=== PATIENT | female | born 1990 | race Caucasian/White ===

== ENCOUNTER → 2021-08-10 12:21 | Outpatient (CLI) | payer OTHER, SELFPAY ==
[2021-08-10 15:32] LABS: HCG,Quantitative 44 mIU/ml (0-5.42)
[2021-08-12 08:10] LABS: Hepatitis B Surface Antigen Negative (Negative)
[2021-08-12 09:30] LABS: Rapid Plasma Reagin Ab Titer Non Reactive (NonRea<1:1)
== END ==
PROVIDERS: Visit Provider Obstetrics & Gynecology
DX: Z34.90 Encounter for supervision of normal pregnancy, unspecified, unspecified trimester (principal)
CPT/HCPCS: 36415; 84702; 86592; 86762; 87340

== ENCOUNTER 2024-06-23 10:49 | Outpatient (CLI) | payer OTHER, SELFPAY | END 2024-06-23 23:59 | disposition home or self-care (01) | LOC: LAB.DROPOF 06-24 10:50 | PROVIDERS: PCP Obstetrics & Gynecology; Visit Provider Obstetrics & Gynecology | DX: Z34.90 Encounter for supervision of normal pregnancy, unspecified, unspecified trimester (principal) | CPT/HCPCS: 87086 ==

== ENCOUNTER 2025-03-12 16:46 | Emergency (ER) | payer SELFPAY ==
--- OUTSIDE RECORDS SUMMARY | 2025-03-12 16:59 | XMS_ITS | Clinical Summary ---
Author Organization [facility] Address [address] [place] [address] Care Team Providers Care Sales Analytics Manager Name Role Phone Pcp, No Primary Care Provider Unavailabl e Allergies No known active allergies Medications levothyroxine (Synthroid, Levoxyl) 75 MCG tabletIndications: Acquired hypothyroidism Take 1 tablet (75 mcg) by mouth 1 (one) time each day before breakfast. 90 tablet 3 08/17/20 24 025 Active acetaminophen (Tylenol) 325 MG tablet Take 2 tablets (650 mg) by mouth every 4 (four) hours if needed for pain. Under [place] law, monthly prescriptions (30 days) can be refilled at 25 days and three-month prescriptions (90 days) at 80 days. Please contact the insurance company with questions if refills are denied. 100 tablet 10/04/20 24 Active docusate sodium 100 MG capsule Take 200 mg by mouth 2 (two) times a day. 60 capsule 3 10/04/20 24 Active ferrous sulfate 324 MG tablet delayed-release Take 1 tablet (324 mg) by mouth 1 (one) time each day with breakfast. Do not crush, chew, or split. 30 tablet 3 10/04/20 24 Active Additional Information Patient not taking.Reported on 10/26/2024 ibuprofen 600 MG tabletIndications: Mild to Moderate Pain Take 1 tablet (600 mg) by mouth every 6 (six) hours. 100 tablet 10/04/20 24 Active oxyCODONE (Roxicodone) 5 MG immediate release tablet Take 1 tablet (5 mg) by mouth every 4 (four) hours if needed for moderate pain. 14 tablet 10/04/20 24 Active Additional Information Patient not taking.Reported on 10/26/2024 Vit-Fe Fumarate-FA ( Vitamins) 28-0.8 MG tabletIndications: Encounter for visit Take 1 tablet by mouth 1 (one) time each day. 30 tablet 11 10/26/19 25 026 Active Active Problems Problem Noted Date Diagnosed Date Encounter for female sterilization procedure Limited care in third trimester 024 care, antepartum 04/20/2024 Assessment & Plan (09/28/2024 8:47 AM EST): Labs: O+/RI/Syph-/HIV-/HBV-/HCV- G/C/T swabs obtained, normal Pap: ASCUS, HPV high risk negative: Per ASCCP guideline, repeat pap with cotesting in 3 yrs Taking vitamin Glucola: Missed glucola appointment, POC glucose was 101 on 09/07 and 115 fasting on 09/14 GBS: Urine culture negative Hypothyroidism: -history of hypothyroidism -taking Levothyroxine 75 mcg daily Immunuzations: Flu: 08/02/24 COVID: Received 09/14/24 Tdap: 08/02/24 MMR: Immune Ultrasounds: 08/09/24 33w1d: Cephalic, anterior placenta, normal AF, 05/13 BPP Delivery Plan: Delivery: Anticipated Anesthesia: does desire epidural PPBC: Tubal Ligation (CONSENT SIGNED: 08/17/24, SEE MEDIA) Breast/Bottle: Breast + Bottle Support Persons: Routine Care at 39w2d Discussed Healthy practices. I am having Shi MorrisonGaby Sang Conet maintain her Vitamins, levothyroxine, and famotidine. Assessment & Plan (08/02/2024 9:43 AM EDT): Labs: 03/23/24: - O+/RI/RPRNR/HBV-/HCV-/HIV- -H/H/PLT: 12.6/37.9/411 - G/C./T neg - Pap ASCUS, HPV high risk negative: Per ASCCP guideline, repeat pap with cotesting in 3 yrs. -TSH 4.96 ( elevated) on Levothyroxin 50 mcg. Glucola: Pt no showed appt on 05/18/24 missed testing window 08/02/24: Point of care blood gluose: 106 08/02/24: H/H/PLT -TSH -Hgb A1c Ultrasounds: 05/11/24: Anatomy US: 20w0 d, Breech , ant. plancenta, 3VC, nml AF, BPD 47.8 mm, OFD 64.5 mm, HC 181.8 mm, cerebellum tr 21.7 mm, NF 4.2 mm, AC 154.7 mm, FL 30.6 mm, Humerus: 30.9 mm, HC/AC 1.18 EFW 336 gm ( 0 lb 12 oz), limited anatomic survey, normal cervical length., Rec. Completion anatomy US in 4-6 wks. 06/22/24: US no showed 07/08/24: US no showed 08/09/24: Vaccinations: - Flu: Covid: - Tdap: discuss at 28 wk. Delivery planning: - Delivery planning: REESE - feeding planned: Breast and bottle -PP contraception plan: Considering Depo - wanting longer acting option than OCPs - introduced nexplanon or IUD as options for further discussion Assessment & Plan (04/20/2024 10:47 AM EDT): Labs: 03/23/24: - O+/RI/RPRNR/HBV-/HCV-/HIV- -H/H/PLT: 12.6/37.9/411 - G/C./T neg - Pap ASCUS, HPV high risk negative: Per ASCCP guideline, repeat pap with cotesting in 3 yrs. -TSH 4.96 ( elevated) on Levothyroxin 50 mcg. Glucola at 24-28 wk H/H/PLT: TSH Ultrasounds: 05/11/24: Anomaly US Vaccinations: - Flu: Covid: - Tdap: discuss at 28 wk. Delivery planning: - Delivery planning: REESE -Infant feeding planned: Breast and bottle -PP contraception plan: Considering Depo - wanting longer acting option than OCPs - introduced nexplanon or IUD as options for further discussion Hypothyroidism affecting in third trim soni 04/20/2024 Assessment & Plan (09/28/2024 8:49 AM EST): Reviewed labs with patient. Explained that the medication is what was keeping her labs normal. Asked her to resume her medication and explained that it is ok that she was off of it for a week. She voiced understanding. Resolved Problems Problem Noted Date Diagnosed Date Resolved Date 40 weeks gestation of 10/02/2024 10/04/2024 Immunizations Immunization Administration Dates Next Due Influenza, seasonal, injectable, preservative fr ee 08/02/2024 Moderna Covid-19 Vaccine 12y +, Damaso Protein, Preservative free 09/14/2024 Tdap 08/02/2024 Social History Tobacco Use Types Packs/Day Years Used Date Smoking Tobacco: Never Smokeless Tobacco: Never Tobacco Cessation:Counseling Given: Not Answered Alcohol Use Standard Drinks/Week Comments Never 0 (1 standard drink = 0.6 oz pur e alcohol) Humiliation, Afraid, Rape, and Kick questionnair e Answer Date Recorded Within the last year, have y ou been afraid of your partner or ex-partner? No 09/21/2024 Within the last year, have y ou been humiliated or emotionally abused in other ways by your partner or ex-partner? No Within the last year, have y ou been kicked, hit, slapped, or otherwise physically hurt by your partner or ex-partner? No 09/21/2024 Within the last year, have y ou been raped or forced to have any kind of sexual activity by your partner or ex-partner? No 09/21/2024 Social Connection and Isolation Panel Answer Date Recorded In a typical week, how many times do you talk on the phone with family, friends, or neighbors? More than three times a week 09/21/2024 How often do you get togethe r with friends or relatives? More than three times a week 09/21/2024 How often do you attend chur or methodist services? More than 4 times per year 09/21/2024 Do you belong to any clubs o r organizations such as druze groups, unions, fraternal or athletic groups, or school groups? No 09/21/2024 How often do you attend meet ings of the clubs or organizations you belong to? More than 4 times per year 09/21/2024 Are you , , di vorced, , never , or living with a partner? Living with partner 09/21/2024 AUDIT-C Answer Date Recorded Q1: How often do you have a drink containing alcohol? Never 09/21/2024 Q2: How many drinks containi ng alcohol do you have on a typical day when you are drinking? Patient does not drink Q3: How often do you have si x or more drinks on one occasion? Never 09/21/2024 Overall Financial Resource Strain (CARDIA) Answe r Date Recorded How hard is it for you to pa y for the very basics like food, housing, medical care, and heating? Somewhat hard 09/21/2024 PHQ-2 Answer Date Recorded Patient Health Questionnaire-2 Score 0 10/26/2024 [facility] of Occupat ional Health - Occupational Stress Questionnaire Answer Date Recorded Do you feel stress - tense, restless, nervous, or anxious, or unable to sleep at night because your mind is troubled all the time - these days? Not at all 09/21/2024 Exercise Vital Sign Answer Date Recorde d On average, how many days pe r week do you engage in moderate to strenuous exercise (like a brisk walk)? 0 days 09/21/2024 On average, how many minutes do you engage in exercise at this level? 0 min 09/21/2024 Hunger Vital Sign Answer Date Recorded Within the past 12 months, y ou worried that your food would run out before you got the money to buy more. Never true 09/21/20 24 Within the past 12 months, t he food you bought just didn't last and you didn't have money to get more. Never true 09/21/2024 PRAPARE - Transportation Answer Date Re corded In the past 12 months, has l ack of transportation kept you from medical appointments or from getting medications? No 09/05 In the past 12 months, has l ack of transportation kept you from meetings, work, or from getting things needed for daily living? No 09/21/2024 Lagrange Depression Scale Answer Date Recorded Lagrange Depression Scale Total 0 10/26/2024 The thought of harming myself has occurred to me . Never 10/26/2024 PHQ-9 Answer Date Recorded Patient Health Questionnaire-9 Score 0 10/26/2024 Housing Stability Vital Sign Answer Mickey e Recorded In the last 12 months, was t here a time when you were not able to pay the mortgage or rent on time? No 09/21/2024 In the past 12 months, how m any times have you moved where you were living? 0 09/21/2024 At any time in the past [address] [facility], were you homeless or living in a jail (including now)? No 09/21/2024 CAGE ASSESSMENT Answer Date Recorded Cage unable to access Not on file 10/02/2024 Cage max number of drinks Not on file 2023 Cage Beverages a week Not on file 10/02/2024 Have you ever felt you should CUT down on your d rinking? 0 10/02/2024 Have you been ANNOYED by people criticizing your drinking? 0 10/02/2024 Have you felt GUILTY about your drinking? 0 10/02/2024 Have you had a drink first t seema in the morning ([employer]) to steady your nerves or to get rid of a hangover? 0 10/02/2024 CAGE Questionnaire Score 0 024 Utilities Answer Date Recorded In the past 12 months has e [employer], gas, oil, or water flipClass threatened to shut off services in your home? No 09/21/2024 PHQ-2A Answer Date Recorded Depression Risk 0 03/23/2024 Comments No Sex and Gender Information Value Date Recorded Sex Assigned at Not on file Legal Sex Female 4:17 PM EDT Gender Identity Not on file Sexual Orientation Not on file Last Filed Vital Signs Vital Sign Reading Time Taken Comments Blood Pressure 128/81 10/26/2024 10:56 AM EST Pulse 62 10/26/2024 10:56 AM EST Temperature 36.6 C (97.8 F) 10/26/2024 10:56 AM EST Respiratory Rate 18 10/04/2024 8:21 AM EST Oxygen Saturation 99% 10/26/2024 10:56 AM EST Inhaled Oxygen Concentration - - Weight 99.4 kg (219 lb 2.2 oz) 10/26/2024 10:56 AM EST Height 165.1 cm (5' 5 ) 04/20/2024 9:00 AM EDT Body Mass Index 36.47 04/20/2024 9:00 AM EDT Plan of Treatment Health Maintenance Due Date Last Done Comments [facility]-Infant/Child/Adol SDOH Screenings 1990 [facility]-Varicella Vaccines (1 of 2 - 13+ 2-dose series) 2003 HPV Vaccines (1 - 3-dose series) 2005 [facility]-Hepatitis B Vaccines (1 of 3 - 19+ 3-dose series) 2009 [id number] Vaccine (2 - Moderna risk series) 10/12/2024 09/14/2024 [facility]- SDOH Screenings 03/22/2025 [facility]-Adult SDOH Screenings 03/22/2025 09/21/2024 [facility]-Depression Screening 10/26/2025 025, 10/26/2024, 10/26/2024, Additional history exists [facility]-Pap Smear 03/23/2027 03/23/2024 [facility]-Cervical Cancer Screening 03/23/2029 [facility]-HPV/Cotest 03/23/2029 03/23/2024 [facility]-DTaP,Tdap,and Td Vaccines (2 - Td or Tdap) 08/02/2034 08/02/2024 [facility]-Zoster Vaccines (1 of 2) 2040 [facility]-HIV Screening Completed 03/23/2024 [facility]-Hepatitis C Screening Completed 03/23/2024 [facility]-Influenza Vaccine Completed 08/02/2024 [facility]-Obesity Intervention Completed 025, 10/02/2024, 09/28/2024, Additional history exists [facility]-HIB Vaccines Aged Out No longer e ligible based on patient's age to complete this topic [facility]-Hepatitis A Vaccines Aged Out No longer eligible based on patient's age to complete this topic [facility]-IPV Vaccines Aged Out No longer e ligible based on patient's age to complete this topic [facility]-Pneumococcal Vaccine: Pediatrics (0 to 5 Years) and At-Risk Patients (6 to 49 Years) Aged Out No longer eligible based on patient's age to complete this topic [facility]-Rotavirus Vaccines Aged Out No lo nger eligible based on patient's age to complete this topic Procedures Procedure Name Priority Date/Time Associated Diagnosis Comments HEPATITIS C ANTIBODY W/REFLEX TO HCV QUANT PCR Routine 03/23/2024 11:32 AM EDT care, antepartum HIV 1/2 ANTIBODY/ANTIGEN SCREEN WITH REFLEX TO HIV I/II DIFFERENTIATION Routine 03/23/2024 11:32 AM EDT care, antepartum PAP TEST - CYTOLOGY Routine 03/23/2024 1 1:20 AM EDT care, antepartum from Last 3 Months or Most Recently Relevant to Health Maintenance Results * HIV 1 & 2 Antibody/Antigen Screen (03/23/2024 11:32 AM EDT) Pathologist [facility] HIV 1 & 2 Antibody/Antigen Screen Non Reactive Non Reactive 03/23/2024 4:28 PM EDT [facility] Comment:Screening for HIV 1 & 2 antibodies, and P24 antigen is NONREACTIVE. No confirmatory testing is required. Blood Venous blood specimen / Unknown Venipuncture / Unknown 03/23/2024 11:32 AM EDT 03/23/2024 11:32 AM EDT us Deedee Haynes MD LAB BLOOD ORDERABLES Final Resu lt Performing Organization Address City/[facility]/ZIP Co de Phone Number [facility] [address] [place] [address] * Hepatitis C Antibody w/Reflex to HCV Quant PCR (03/23/2024 11:32 AM EDT) Pathologist [facility] Hepatitis C Antibody Negative Negative 03/23/2024 4:28 PM EDT [facility] Blood Venous blood specimen / Unknown Venipuncture / Unknown 03/23/2024 11:32 AM EDT 03/23/2024 11:32 AM EDT us Althea Butler MD LAB BLOOD ORDERABLES Final Resu lt Performing Organization Address City/[facility]/ZIP Co de Phone Number [facility] [address] [place] [address] * (ABNORMAL) Pap Test (03/23/2024 11:20 AM EDT) Pathologist [facility] Case Report Cytology Case: [id number] Authorizing Provider: Althea Butler MD Collected: 03/23/2024 1120 Ordering Location: [facility] Received: 03/23/2024 1128 Obstetrics & Gynecology First Screen: Ember Hoang Pathologist: Patricia Hedrick MD Specimen: ThinPrep Pap Test, Liquid-Based Cervical/Vagina l 04/09/2024 9:51 AM EDT [facility] Interpretation ATYPICAL SQUAMOUS CELLS OF UNDETERMINED SIGNIFICANCE (ASCUS)(A) 04/09/2024 9:51 AM EDT [facility] at 0951 EDT Specimen Adequacy Satisfactory for evaluation; endocervical/tr ansformation zone component present. Slide imaged by the ThinPrep Imaging system and selected 22 knight reviewed then full manual screening. 04/09/2024 9:51 AM EDT [facility] Cervical cytology is a screening test primarily for squamous cancers and precursors and has associated false negative and positive results. New technologies such as liquid based sampling may decrease but will not eliminate all false negative results. Regular screening and follow-up of unexplained clinical signs and symptoms are recommended to minimize false negative results. Please see the ASCCP website (www.asccp.org) for followup recommendations . If HPV testing was requested, correlation with the results is suggested (please call Microbiology at [phone] for results). 04/09/2024 9:51 AM EDT [facility] Menstrual Status 04/09/20 9:51 AM EDT [facility] Contraceptive History Not Applicable 04/09/2024 9:51 AM EDT [facility] Screening Type Routine Screen 2023 9:51 AM EDT [facility] High Risk? No 04/09/2024 9:51 AM EDT [facility] HPV Testing Requested? Request HPV Testing Regardless of Pap Test Findings 04/09/2024 9:51 AM EDT [facility] Previous Cancer History No 04/09/2024 9:51 AM EDT [facility] Clinical Information Z34.90 - care, antepartum [ICD-10-CM] 04/09/2024 9:51 AM EDT [facility] Swab Vaginal and cervical cytologic material / Unknown Non-blood Collection / Unknown 03/23/2024 11:20 AM EDT 03/23/2024 11:28 AM EDT us Althea Butler MD LAB CYTOLOGY ORDERABLES Final [facility] [address] [place] [address] from Last 3 Months or Most Recently Relevant to Health Maintenance Advance Directives * Full Code (Latest Code Status on File) Date Activated Date Inactivated Comments 10/02/2024 1:06 PM 10/04/2024 5:06 PM Question Answer Comments Patient has decision-making capacity? Yes Care Teams Sales Analytics Manager Relationship Specialty Start Date End Date Pcp, No [address] [place] [address] PCP - General Family Medicine 05/11/24
--- NOTE | 2025-03-12 17:11 | HMH.EDGENADL ---
Discharge Plan Disposition Patient Disposition: Home, Self-Care Prescriptions Prescriptions: New meclizine 25 mg tablet 25 mg PO TID PRN (Reason: dizziness) Qty: 20 0RF ondansetron 4 mg tablet,disintegrating 4 mg PO Q6H PRN (Reason: nausea and vomiting) 5 Days Qty: 20 0RF No Action levothyroxine [Euthyrox] 75 mcg tablet 75 mcg PO DAILY Classic 28 mg iron- 800 mcg tablet 1 tab PO DAILY Referrals Follow up/Referrals: Provider,Referral, MD [Primary Care Provider, Medical] - See instructions Activity Restrictions/Add. Instructions Additional Instructions/Restrictions: Your neurologic exam is normal and your systems are consistent with benign paroxysmal positional vertigo. I recommend you continue to do the Heather maneuver at home as discussed. You may take your medications as needed for nausea and vomiting. Return to the emergency department with any significant worsening of your symptoms. Clinical Impressions Clinical Impression: Benign paroxysmal positional vertigo Instructions Patient Instructions: Benign Paroxysmal Positional Vertigo Print Language Print Language: [place] Leone[place] Discharge ED Provider: Dread Bonilla General Adult HPI General Chief complaint: Dizziness Stated complaint: General Weakness Time Seen by Provider: 03/12/25 16:51 History of Present Illness HPI narrative: Patient is a 34-year-old female presents today with vertiginous symptoms. Stating this started about 3 to 4 hours ago and states that she feels like the room is spinning and that she has had to keep her eyes closed because every time she opens her eyes the sensation is worse in a particular when she moves her head to the left symptoms worsen. When she is sitting still and has her eyes closed symptoms estella. Coordination is otherwise normal visual acuity is otherwise normal. She has had a mild headache associated with this but no other focal neurologic deficits. No other past medical history. Related Data Home Medications ?Medication ?Instructions ?Recorded ?Confirmed levothyroxine 75 mcg tablet 75 mcg PO DAILY 08/10/21 03/12/25 (Euthyrox) vits no.126-ferrous fum 1 tab PO DAILY 06/23/24 03/12/25 28 mg iron-folic acid 800 mcg tablet (Classic ) Previous Rx's ?Medication ?Instructions ?Recorded meclizine 25 mg tablet 25 mg PO TID PRN dizziness #20 tabs 03/12/25 ondansetron 4 mg disintegrating 4 mg PO Q6H PRN nausea and 03/12/25 tablet vomiting 5 days #20 tabs Allergies Allergy/AdvReac Type Severity Reaction Status Date / Time No Known Allergies Allergy Verified 06/23/24 15:08 [facility] Disclaimer: The information contained in this section may have been updated after the patient was seen, as this information can be updated by other users. Medical History (Updated 03/12/25 @ 17:11 by Dread Bonilla MD) History of hypothyroidism LGSIL on Pap smear of cervix Surgical History (Updated 06/23/24 @ 15:21 by ONESIMO Erwin) No significant past surgical history Family History (Updated 06/23/24 @ 15:21 by ONESIMO Erwin) Other No significant family history Social History Smoking Status: Never smoker alcohol intake: never substance use type: denies use current occupational status: unemployed Travel in the last 8 weeks?: None Have you lived/traveled outside US in past 30 days?: No Contact w/someone who lives/traveled outside US past 30 days?: No Exposure to someone with infectious disease in past 14 days?: No Do you have a fever (greater than 100.4 F or 38 C)?: No Have you tested positive for COVID-19?: No Exposed to someone with COVID-19 in past 14 days?: No Do you have a sore throat?: No Do you have a cough?: No Do you have any weakness?: Yes Do you have any diarrhea?: No Are you experiencing any unusual bleeding?: No Do you have any muscle aches/pain?: No Do you have any abdominal pain?: No Are you experiencing loss of taste or smell?: No Other Medical History Have you received the Pneumonia Vaccine: No ROS Obtained: Yes All systems reviewed & no additional complaints except as documented Physical Exam General General appearance: alert and in no apparent distress Eye Eye exam: Present other (Horizontal nystagmus) Respiratory Respiratory exam: Present normal lung sounds bilaterally Cardiovascular Cardiovascular exam: Present regular rate Neurological Exam Neurological exam: Present alert, oriented X3, CN II-XII intact, normal gait and other (Finger-nose oldl-ht-hcgk normal bilaterally); Absent motor sensory deficit Medical Decision Making Medical Records Screening: Per USPSTF and CDC recommendations, given the prevalence of disease in our region, it is our hospital?s policy to screen for HIV and viral Hepatitis for all patients aged 18 and over and those with ongoing risk factors. Rui Inquiry Pt receiving controlled substance: No Vital Signs: 03/12/25 17:22 Temperature 98.3 F Temperature Source Oral Pulse Rate [Right] 63 Respiratory Rate 18 Blood Pressure [Right Arm] 143/77 H Blood Pressure Mean [Right Arm] 99 02 Sat by Pulse Oximetry 99 Oxygen Delivery Method Room Air Lab Data Lab results reviewed: Yes I reviewed the patient's lab results. Lab Results 03/12/25 17:14: WBC 13.1 H, RBC 4.82, Hgb 12.0 L, Hct 38.0, MCV 78.8 L, MCH 24.9 L, MCHC 31.6 L, RDW 15.6, Plt Count 462 H, MPV 8.6, Neut % (Auto) 81.1 H, Lymph % (Auto) 15.3, [place] % (Auto) 2.8, Eos % (Auto) 0.2, Baso % (Auto) 0.4, Neut # (Auto) 10.6 H, Lymph # (Auto) 2.0, [place] # (Auto) 0.4, Eos # (Auto) 0.0, Baso # (Auto) 0.1, Sodium 136, Potassium 4.2, Chloride 106, Carbon Dioxide 24, Anion Gap 10.2, BUN 17, Creatinine 0.60, Estimated Creat Clear 214, Estimated GFR 114, Est GFR ( Amer) 138, Glucose 107 H, Calcium 9.3, Total Bilirubin 0.7, AST 35, ALT 22, Alkaline Phosphatase 99, Total Protein 8.5 H, Albumin 4.6, Globulin 3.9 H, Albumin/Globulin Ratio 1.2 03/12/25 17:14 03/12/25 17:14 Orders (Tests/Meds): ED MEDICATIONS Discontinued Medications Generic Name Dose Route Start Last Admin Trade Name Freq PRN Reason Stop Dose Admin Lactated Ringer's 1,000 mls @ 999 mls/hr 03/12/25 17:15 03/12/25 17:15 Lactated Ringer's 1000 Ml Bag IV 03/12/25 18:15 999 mls/hr .Q1H1M DEBRA Administration Meclizine HCl 25 mg 03/12/25 17:10 03/12/25 17:15 Meclizine 25mg Tablet PO 03/12/25 17:11 25 mg ONCE ONE Administration Ondansetron HCl 4 mg 03/12/25 17:10 03/12/25 17:13 Ondansetron 4mg/2ml Vial IV 03/12/25 17:11 4 mg ONCE ONE Administration ORDERS Category Date Time Status CBC w/Auto Diff [Complete Blood Count Auto Diff] Stat Lab 03/12/25 17:14 Completed CMP [Comprehensive Metabolic Panel] Stat Lab 03/12/25 17:14 Completed Medical Decision Narrative: 34-year-old with above history and physical presents today with symptoms consistent with benign paroxysmal positional vertigo. Her symptoms are otherwise not consistent with a central process as she has normal posterior circulation exam. She is also not a vasculopath. Attempted the Heather maneuvers without any significant improvement in fact made her vomit further. Therefore IV fluids basic labs Zofran and meclizine have been administered will reassess shortly. Given the fact that her neuroexam is normal no indication for CT imaging or vascular imaging. Reassessment 637 labs essentially unremarkable from emergency standpoint. Serial neurologic exams are completely normal I did stand the patient up she has normal Romberg normal gait normal rapid alternating movements finger-nose boef-hl-swet all normal. This is not consistent with a central cause of her symptoms. Patient feels better with meclizine and Zofran. Still is having some vertigo with significant movements of her head. She has been encouraged to continue to do the Heather maneuver at home. All of this was done both from history standpoint and reassessment through the paraprofessional interpreter. She understands she was discharged in stable condition. Critical Care Critical Care Time Critical Care Time: No
[2025-03-12] MEDS: ONDANSETRON 4MG/2ML VIAL 4 MG IV (17:13)
[2025-03-12] MEDS: LACTATED RINGERS 1000ML 1,000 ML 999 ML IV (17:15)
[2025-03-12] MEDS: MECLIZINE 25MG TABLET 25 MG PO (17:15)
[2025-03-12 17:22] VITALS: BP 143/77; PULSE 63; RESP 18; TEMP 36.8; O2SAT 99; BMI 36.4
[2025-03-12 17:24] LABS: Basophils # 0.1 K/mm3 (0-0.2); Basophils % 0.4 % (0.1-2.0); Eosinophils % 0.2 % (0.1-12.0); Immature Granulocytes # 0.03 10^3uL; Immature Granulocytes % 0.2 %; Lymphocytes % 15.3 % (10-50); Mean Corpuscular HGB Conc 31.6 g/dL (31.8-35.4); Mean Corpuscular Hemoglobin 24.9 pg (27.0-31.2); Mean Corpuscular Volume 78.8 fl (81-99); Mean Platelet Volume 8.6 fl (7.4-10.4); Monocytes # 0.4 K/mm3 (0.1-1.0); Monocytes % 2.8 % (1.7-9.3); Neutrophils # 10.6 K/mm3 (1.8-7.8); Neutrophils % 81.1 % (37.0-80.0); Nucleated Red Blood Cells # 0 10^3/uL; Nucleated Red Blood Cells % 0 %; Platelet Count 462 K/mm3 (142-424); Red Blood Count 4.82 M/mm3 (4.20-5.40); Red Cell Distribution Width 15.6 % (11.5-17.5); Red Cell Distribution Width-SD 43.8 fL; White Blood Count 13.1 K/mm3 (4.8-10.8)
[2025-03-12 17:33] LABS: Alanine Aminotransferase 22 U/L (12-78); Albumin Level 4.6 g/dl (3.5-5.0); Albumin/Globulin Ratio 1.2 (1.1-1.8); Alkaline Phosphatase 99 U/L (38-126); Anion Gap 10.2 mEq/L (5-15); Aspartate Amino Transferase 35 U/L (14-36); Bilirubin,Total 0.7 mg/dl (0.2-1.3); Blood Urea Nitrogen 17 mg/dl (7-17); Calcium 9.3 mg/dl (8.4-10.2); Carbon Dioxide 24 mmol/L (22.0-30.0); Chloride 106 mmol/L (98-107); Creatinine Clearance Estimated 214 mL/min (50-200); Estimated Glomerular Filt Rate 114 ml/min (>60); GFR (African American) 138 ML/MIN (>60); Globulin 3.9 g/dL (1.3-3.2); Glucose 107 mg/dl (74-100); Potassium 4.2 mmoL/L (3.5-5.1); Sodium 136 mmol/L (136-145); Total Protein,Serum 8.5 g/dl (6.3-8.2)
[2025-03-12 18:36] VITALS: BP 123/75; PULSE 51; RESP 18; O2SAT 100
[2025-03-12 18:38] VITALS: BP 123/75; PULSE 61; RESP 18; TEMP 36.8; O2SAT 98
[2025-03-12 18:42] VITALS: BP 123/75; PULSE 54; RESP 18; TEMP 36.8; O2SAT 99
== END 2025-03-12 18:44 | disposition home or self-care (01) ==
PROVIDERS: Emergency Provider Student in an Organized Health Care Education/Training Program
DX: H81.10 Benign paroxysmal vertigo, unspecified ear (principal); R11.10 Vomiting, unspecified
CPT/HCPCS: 80053; 85025; 96361; 96374; 99284; J2405; J7120